=== PATIENT | female | born 1950 | race Caucasian/White ===

== ENCOUNTER → 2016-12-31 | Outpatient (CLI) | payer MEDICARE ==
[~2016-12-31] MED LIST: ASPIRIN81 M1 PO; CALCIUM600 M2 PO; FISH OIL1000 MG PO; LIPITOR10 MG; MOTRIN800 MG PO; NORVASC10 MG PO; SYNTHROID,LEVO88 MCG; VITAMIN D31000 IU PO
== END | disposition home or self-care (01) ==
LOC: MAMMO 07:59
DX: Z12.31 Encounter for screening mammogram for malignant neoplasm of breast (principal)